=== PATIENT | male | born 1975 | race African-American/Black ===

== ENCOUNTER 2023-02-16 19:44 | Emergency (ER) | payer OTHER ==
[2023-02-16 19:49] VITALS: BP 149/99; PULSE 87; RESP 22; TEMP 98.6; BMI 31.3
[2023-02-16] MEDS ORDERED: ALBUTEROL SO4 2.5/IPRATROPIUM 0.5 INH SOL 3 ML VIAL.NEB. NEB ONE ×2 (21:58→22:11)
[2023-02-16] MEDS: ALBUTEROL SO4 2.5/IPRATROPIUM 0.5 INH SOL 3 ML VIAL.NEB. NEB SCH ×3 (22:09→22:41)
[2023-02-16 22:17] LABS: BASO % 0.6 % (0-2.0); EOS % 4.8 % (0-4.5); HEMATOCRIT 45.6 % (35.4-49); HEMOGLOBIN 15.8 GM/dL (11.7-16.9); LYMPH % 9.3 % (8-40); MCH 30.3 pg (25.7-33.7); MCHC 34.8 g/dl (32.0-35.9); MEAN CELL VOLUME 87.3 fl (80-96); MEAN PLT VOLUME 6.6 fl (7.5-11.1); MONO % 9.9 % (3.8-10.2); NEUT % 75.4 % (42.8-82.8); PLATELET COUNT 312 10^3/uL (134-434); RBC 5.22 M/mm3 (4.00-5.60); RDW 14.1 % (11.9-15.9); WHITE BLOOD COUNT 14.6 K/mm3 (4.0-10.0)
[2023-02-16 23:42] LABS: POTASSIUM 4.2 mmol/L (3.5-5.1)
[2023-02-16 23:43] LABS: ALBUMIN 3.6 g/dl (3.4-5.0); BLOOD UREA NITROGEN 4.5 mg/dL (7-18); CALCIUM 8.6 mg/dL (8.5-10.1)
[2023-02-16 23:47] LABS: CREATININE 0.7 mg/dL (0.55-1.3)
[2023-02-16 23:49] LABS: BILIRUBIN,TOTAL 0.3 mg/dL (0.2-1); TOT PROT 7.5 g/dl (6.4-8.2)
== END 2023-02-17 00:20 | disposition home or self-care (01) ==
LOC: JER 19:44
DX: R05.9 Cough, unspecified (principal); R06.2 Wheezing; R06.02 Shortness of breath; R07.89 Other chest pain; R51.9 Headache, unspecified; M79.10 Myalgia, unspecified site; J18.9 Pneumonia, unspecified organism; R19.7 Diarrhea, unspecified; Z20.822 Contact with and (suspected) exposure to COVID-19
CPT/HCPCS: 0241U-QW; 36415; 71046-TC-FY; 80053; 85025; 99284-25